=== PATIENT | male | born 1980 | race Caucasian/White ===

== ENCOUNTER 2021-04-05 14:11 | Emergency (ER) | payer SELFPAY ==
[2021-04-05] MEDS ORDERED: Ibuprofen 400 MG Tab PO ONE (14:31)
--- NOTE | 2021-04-05 14:58 | CR ---
PROCEDURE INFORMATION: Exam: XR Right Hand Exam date and time: 04/05/2021 2:25 PM Age: 40 years old Clinical indication: Other: Punched wall; Pain to lateral hand TECHNIQUE: Imaging protocol: XR Right hand. Views: 3 or more views. COMPARISON: No relevant prior studies available. FINDINGS: Bones/joints: There is anatomic alignment. No acute fracture or dislocation. The joint spaces are preserved. There is normal bone density. No aggressive osseous abnormality. Soft tissues: Dorsal soft tissue swelling at the metacarpal level. IMPRESSION: 1. No acute abnormality. 2. Moderate dorsal soft tissue swelling.
--- NOTE | 2021-04-05 15:14 | EDM.PDOC ---
ED HPI GENERAL MEDICAL PROBLEM - General Chief Complaint: Upper Extremity Injury/Pain Stated Complaint: POSSIBLE BROKEN HAND / W/ LAW ENFORCEMENT Time Seen by Provider: 04/05/21 14:30 Source of Information: Reports: Patient, Provider (NEVAEH Herrera for [facility]) History Limitations: Reports: No Limitations - History of Present Illness INITIAL COMMENTS - FREE TEXT/NARRATIVE: Ebenezer is a 40 y/o male who presents to the ED via [facility] with complaints of right hand pain. The patient reports he struck a wall with a closed fist approximately 30 minutes prior to his arrival to this facility. He denies loss of sensory function but does attest to pain with flexion and extension of the third finger PIP. He has taken no medications or performed any supportive cares for his injury. He denies history of injury or trauma to the affected extremity. Treatments RECHARGER: Reports: Splint(s) - Related Data Allergies Allergy/AdvReac Type Severity Reaction Status Date / Time haloperidol [From Haldol] Allergy Cannot Verified 04/05/21 14:23 Remember Home Meds: Home Meds . [No Known Home Meds] 04/05/21 [History] Past Medical History - Past Health History Medical/Surgical History: Denies Medical/Surgical History Social & Family History - Tobacco Use Tobacco Use Status *Q: Current Every Day Tobacco User Years of Tobacco use: 20 Packs/Tins Daily: 0.5 Used Tobacco, but Quit: No Second Hand Smoke Exposure: No - Caffeine Use Caffeine Use: Reports: Energy Drinks, Soda - Recreational Drug Use Recreational Drug Use: No Review of Systems - Review of Systems Review Of Systems: Comprehensive ROS is negative, except as noted in HPI. ED EXAM, GENERAL - Physical Exam Exam: See Below Exam Limited By: No Limitations General Appearance: Alert, No Apparent Distress Eye Exam: Bilateral Eye: EOMI, Normal Inspection, PERRL (3mm) Ears: Normal External Exam, Hearing Grossly Normal Throat/Mouth: Normal Inspection, Normal Oropharynx, Normal Voice, No Airway Compromise Head: Atraumatic, Normocephalic Neck: Normal Inspection, Full Range of Motion Respiratory/Chest: No Respiratory Distress, Lungs Clear, Normal Breath Sounds, No Accessory Muscle Use, Chest Non-Tender Cardiovascular: Normal Peripheral Pulses, Regular Rate, Rhythm, No Gallop, No Murmur, No Rub Peripheral Pulses: 2+: Radial (L), Radial (R) GI/Abdominal: Normal Bowel Sounds, Soft, Non-Tender (Male) Exam: Deferred Rectal (Males) Exam: Deferred Back Exam: Normal Inspection Extremities: Normal Capillary Refill, Joint Swelling (To posterior aspect of right hand, overlying PIP joint), Arm Pain (To third PIP joint on right hand), Limited Range of Motion (To right third PIP joint). No: Increased Warmth, Mottled, Pallor, Redness Neurological: Alert, Oriented, CN II-XII Intact, Normal Cognition, Normal Gait, Normal Reflexes, No Motor/Sensory Deficits Psychiatric: Normal Affect, Normal Mood Skin Exam: Warm, Dry, No Rash, Ecchymosis (To right posterior hand), Wound/Incision (Superficial abrasion to right, third PIP joint). No: Cyanosis, Erythema, Jaundice, Mottled, Pallor Course - Vital Signs Last Recorded V/S: Last Vital Signs Temp 99.0 F 04/05/21 14:24 Pulse 86 04/05/21 14:24 Resp 16 04/05/21 14:24 BP 125/80 04/05/21 14:24 Pulse Ox 100 04/05/21 14:24 - Orders/Labs/Meds Meds: Medications Discontinued Medications Generic Name Dose Route Start Last Admin Trade Name Freq PRN Reason Stop Dose Admin Ibuprofen 400 mg 04/05/21 14:31 04/05/21 15:17 Ibuprofen 400 Mg Tab PO 04/05/21 14:32 400 mg ONETIME ONE Administration - Re-Assessments/Exams Free Text/Narrative Re-Assessment/Exam: 04/05/21 X-ray of right hand obtained. Findings of examination and imaging reviewed with patient. Supportive cares for right hand pain discussed. Patient instructed to follow up with primary care provider regarding todays visit. Red flag signs and symptoms which would warrant immediate reevaluation reviewed. Patient verbalized understanding and agreement with the plan of care. Departure - Departure Time of Disposition: 15:16 Disposition: Home, Self-Care 01 Condition: Good Clinical Impression: Right hand pain - Discharge Information *PRESCRIPTION DRUG MONITORING PROGRAM REVIEWED*: Not Applicable *COPY OF PRESCRIPTION DRUG MONITORING REPORT IN PATIENT KARMA: Not Applicable Instructions: Hand Pain Forms: ED Department Discharge Additional Instructions: 1.) You may take ibuprofen (Advil/Motrin) 400-800mg every six hours, as pain and swelling persist. You may also take acetaminophen (Tylenol) 650-1000mg every six hours, as pain persists. You may stagger these medications so you are taking a dose of either every three hours. 2.) You may apply cold compresses to the area as pain and swelling persist, 20 minutes every hour. 3.) Follow up with your primary care provider in 5-7 days regarding todays visit. Sepsis Event Note (ED) - Evaluation Sepsis Screening Result: No Definite Risk
== END 2021-04-05 15:29 | disposition home or self-care (01) ==
LOC: DL.ED 14:11
DX: M79.641 Pain in right hand (principal); Z88.5 Allergy status to narcotic agent; Z72.0 Tobacco use
CPT/HCPCS: 73130-RT; 99283; A9270-GY

== ENCOUNTER 2021-04-10 18:34 | Emergency (ER) | payer MEDICAID ==
[2021-04-10 19:46] LABS: ANION GAP 12.3 mEq/L (7-13); CHLORIDE,CL 107 mmol/L (98-107); SODIUM,NA 144 mmol/L (136-145)
[2021-04-10 19:49] LABS: AMPHETAMINES,URINE NEGATIVE (NEGATIVE); BARBITURATES,URINE NEGATIVE (NEGATIVE); BENZODIAZEPINE,URINE NEGATIVE (NEGATIVE); MDMA (ECSTASY), URINE NEGATIVE (NEGATIVE); METHADONE,URINE NEGATIVE (NEGATIVE); METHAMPHETAMINES,URINE NEGATIVE (NEGATIVE); OPIATES,URINE NEGATIVE (NEGATIVE); OXYCODONE,URINE NEGATIVE (NEGATIVE); PHENCYCLIDINE,URINE NEGATIVE (NEGATIVE); TCA,URINE NEGATIVE (NEGATIVE)
[2021-04-10] MEDS ORDERED: Ondansetron 4 MG/2 ML SDV IVPUSH ONE (20:00)
--- NOTE | 2021-04-10 20:00 | EDM.PDOC ---
ED HPI GENERAL MEDICAL PROBLEM - General Chief Complaint: Abdominal Pain Stated Complaint: Fell off bunkbed Time Seen by Provider: 04/10/21 19:10 Source of Information: Reports: Patient, RN, RN Notes Reviewed History Limitations: Reports: No Limitations - History of Present Illness INITIAL COMMENTS - FREE TEXT/NARRATIVE: Any is a 40 y/o male who presents to the ED with the [facility] for complaints of RLQ abdominal pain as well as a fall from his lower bunk. The patient reports his abdominal pain started two weeks ago and has waxed and waned in severity over that time. He notes the pain initiates in the RLQ and radiates through into his right lower back. He characterizes the pain as a sharp ripping when at it's worst. Today he notes he developed shaking chills, nausea and two episodes of emesis with the pain. He states the pain became so great he fell off his bottom bunk due to writhing. He denies fever, dyspepsia, hematemesis, dysuria, hematuria, hematochezia, or melena. He notes his last bowel movement was today and was soft/formed. His last meal was this past evening which he ate without complication. The patient attests to striking his head on the floor when he fell off of his bottom bunk; he denies loss of consciousness, daily blood thinner use, or history of blood dyscrasias. He denies cervical point tenderness or neck pain with flexion/extension/lateral rotation. He denies vision changes, dizziness, or projectile vomiting since this incident. He does attest to a frontal headache for which he has taken no medication or performed any supportive cares. Right Lower Abdomen Pain Score (Numeric/FACES): 7 - Related Data Allergies Allergy/AdvReac Type Severity Reaction Status Date / Time haloperidol [From Haldol] Allergy Intermediate Seizure Verified 04/10/21 18:56 Home Meds: Home Meds Acetaminophen 04/10/21 [History] Past Medical History - Past Health History Medical/Surgical History: Denies Medical/Surgical History Psychiatric History: Reports: Anxiety Social & Family History - Tobacco Use Tobacco Use Status *Q: Current Every Day Tobacco User Years of Tobacco use: 25 Packs/Tins Daily: 0.5 - Caffeine Use Caffeine Use: Reports: Coffee, Energy Drinks - Recreational Drug Use Recreational Drug Use: No ED ROS GENERAL - Review of Systems Review Of Systems: Comprehensive ROS is negative, except as noted in HPI. ED EXAM, GI/ABD - Physical Exam Exam: See Below Exam Limited By: No Limitations General Appearance: Alert, No Apparent Distress Eyes: Bilateral: Normal Appearance, EOMI Ears: Normal External Exam, Normal Canal, Hearing Grossly Normal, Normal TMs Nose: Normal Inspection, Normal Mucosa, No Blood Throat/Mouth: Normal Inspection, Normal Oropharynx, Normal Voice, No Airway Compromise. No: Normal Lips (Dry, chapped) Head: Normocephalic, Facial Swelling (Hematoma to midline forehead), Facial Tenderness (To midline forehead), Sinus Tenderness Neck: Normal Inspection, Supple, Non-Tender, Full Range of Motion, Other (Cervical collar in place removed upon assessment due to negative NEXUS criteria). No: Tender Lateral, Tender Midline Respiratory/Chest: No Respiratory Distress, Lungs Clear, Normal Breath Sounds, No Accessory Muscle Use, Chest Non-Tender Cardiovascular: Normal Peripheral Pulses, Regular Rate, Rhythm, No Gallop, No Murmur, No Rub GI/Abdominal Exam: Soft, No Distention, No Abnormal Bruit, No Mass, Pelvis Stable, Guarding, Rebound (To RLQ), Tender (To palpation of RLQ), Abnormal Bowel Sounds (Hyperactive bowel sounds). No: Rigid, Hernia (Male) Exam: Deferred Rectal (Males) Exam: Deferred Back Exam: Normal Inspection, Full Range of Motion. No: CVA Tenderness (L), CVA Tenderness (R) Extremities: Normal Range of Motion, Non-Tender, No Pedal Edema, Normal Capillary Refill, Increased Warmth (To right third PIP; Healing injury due to striking a wall with a closed fist). No: Mottled, Pallor, Redness Neurological: Alert, Oriented, CN II-XII Intact, Normal Cognition, Normal Gait, No Motor/Sensory Deficits Psychiatric: Normal Affect, Normal Mood Skin Exam: Warm, Dry, Intact, No Rash, Ecchymosis (Faint to right third PIP joint). No: Cyanosis, Erythema, Increased Warmth, Jaundice, Mottled, Pallor, Petechiae Course - Vital Signs Last Recorded V/S: Last Vital Signs Temp 98.0 F 04/10/21 22:08 Pulse 62 04/10/21 22:08 Resp 16 04/10/21 22:08 BP 117/67 04/10/21 22:08 Pulse Ox 97 04/10/21 22:08 - Orders/Labs/Meds Labs: Laboratory Tests 04/10/21 04/10/21 04/10/21 Range/Units 19:11 19:11 19:11 WBC 5.8 (5.0-10.0) 10^3/uL RBC 4.36 L (4.6-6.2) 10^6/uL Hgb 13.9 L (14.0-18.0) g/dL Hct 40.1 (40.0-54.0) % MCV 92.0 (80-100) fL MCH 31.9 (27.0-34.0) pg MCHC 34.7 (33.0-35.0) g/dL Plt Count 176 (150-450) 10^3/uL Neut % (Auto) 65.9 (42.2-75.2) % Lymph % (Auto) 24.9 (20.5-50.1) % [place] % (Auto) 7.0 (2-8) % Eos % (Auto) 1.9 (1.0-3.0) % Baso % (Auto) 0.3 (0.0-1.0) % Sodium 144 (136-145) mmol/L Potassium 4.3 (3.5-5.1) mmol/L Chloride 107 (98-107) mmol/L Carbon Dioxide 29 (21-32) mmol/L Anion Gap 12.3 (7-13) mEq/L BUN 21 H (7-18) mg/dL Creatinine 1.26 (0.70-1.30) mg/dL Est Cr Clr Drug Dosing 74.32 mL/min Estimated GFR (MDRD) > 60 BUN/Creatinine Ratio 16.7 (No establ ref range) Glucose 90 (70-99) mg/dL Lactic Acid 1.1 (0.4-2.0) mmol/L Calcium 8.7 (8.5-10.1) mg/dL Magnesium 2.1 (1.8-2.4) mg/dL Total Bilirubin 0.2 (0.2-1.0) mg/dL AST 21 (15-37) U/L ALT 32 (16-63) U/L Alkaline Phosphatase 43 L (46-116) U/L C-Reactive Protein < 0.2 (0.0-0.9) mg/dL Total Protein 6.5 (6.4-8.2) g/dL Albumin 3.7 (3.4-5.0) g/dL Globulin 2.8 Albumin/Globulin Ratio 1.3 Amylase 65 (25-115) U/L Lipase 102 (73-393) U/L Urine Color (YELLOW) Urine Appearance (CLEAR) Urine pH (5.0-9.0) Ur Specific [place] (1.005-1.030) Urine Protein (NEGATIVE) Urine Glucose (UA) (NEGATIVE) Urine Ketones (NEGATIVE) Urine Occult Blood (NEGATIVE) Urine Nitrite (NEGATIVE) Urine Bilirubin (NEGATIVE) Urine Urobilinogen (0.2-1.0) mg/dL Ur Leukocyte Esterase (NEGATIVE) Urine Opiates Screen (NEGATIVE) Ur Oxycodone Screen (NEGATIVE) Urine Methadone Screen (NEGATIVE) Ur Barbiturates Screen (NEGATIVE) U Tricyclic Antidepress (NEGATIVE) Ur Phencyclidine Scrn (NEGATIVE) Ur Amphetamine Screen (NEGATIVE) U Methamphetamines Scrn (NEGATIVE) Urine MDMA Screen (NEGATIVE) U Benzodiazepines Scrn (NEGATIVE) Urine Cocaine Screen (NEGATIVE) U Marijuana (THC) Screen (NEGATIVE) 04/10/21 04/10/21 Range/Units 19:38 19:38 WBC (5.0-10.0) 10^3/uL RBC (4.6-6.2) 10^6/uL Hgb (14.0-18.0) g/dL Hct (40.0-54.0) % MCV (80-100) fL MCH (27.0-34.0) pg MCHC (33.0-35.0) g/dL Plt Count (150-450) 10^3/uL Neut % (Auto) (42.2-75.2) % Lymph % (Auto) (20.5-50.1) % [place] % (Auto) (2-8) % Eos % (Auto) (1.0-3.0) % Baso % (Auto) (0.0-1.0) % Sodium (136-145) mmol/L Potassium (3.5-5.1) mmol/L Chloride (98-107) mmol/L Carbon Dioxide (21-32) mmol/L Anion Gap (7-13) mEq/L BUN (7-18) mg/dL Creatinine (0.70-1.30) mg/dL Est Cr Clr Drug Dosing mL/min Estimated GFR (MDRD) BUN/Creatinine Ratio (No establ ref range) Glucose (70-99) mg/dL Lactic Acid (0.4-2.0) mmol/L Calcium (8.5-10.1) mg/dL Magnesium (1.8-2.4) mg/dL Total Bilirubin (0.2-1.0) mg/dL AST (15-37) U/L ALT (16-63) U/L Alkaline Phosphatase (46-116) U/L C-Reactive Protein (0.0-0.9) mg/dL Total Protein (6.4-8.2) g/dL Albumin (3.4-5.0) g/dL Globulin Albumin/Globulin Ratio Amylase (25-115) U/L Lipase (73-393) U/L Urine Color Yellow (YELLOW) Urine Appearance Clear (CLEAR) Urine pH 7.5 (5.0-9.0) Ur Specific [place] 1.020 (1.005-1.030) Urine Protein Negative (NEGATIVE) Urine Glucose (UA) Negative (NEGATIVE) Urine Ketones Negative (NEGATIVE) Urine Occult Blood Negative (NEGATIVE) Urine Nitrite Negative (NEGATIVE) Urine Bilirubin Negative (NEGATIVE) Urine Urobilinogen 0.2 (0.2-1.0) mg/dL Ur Leukocyte Esterase Negative (NEGATIVE) Urine Opiates Screen Negative (NEGATIVE) Ur Oxycodone Screen Negative (NEGATIVE) Urine Methadone Screen Negative (NEGATIVE) Ur Barbiturates Screen Negative (NEGATIVE) U Tricyclic Antidepress Negative (NEGATIVE) Ur Phencyclidine Scrn Negative (NEGATIVE) Ur Amphetamine Screen Negative (NEGATIVE) U Methamphetamines Scrn Negative (NEGATIVE) Urine MDMA Screen Negative (NEGATIVE) U Benzodiazepines Scrn Negative (NEGATIVE) Urine Cocaine Screen Negative (NEGATIVE) U Marijuana (THC) Screen Negative (NEGATIVE) Meds: Medications Discontinued Medications Generic Name Dose Route Start Last Admin Trade Name Freq PRN Reason Stop Dose Admin Acetaminophen 1,000 mg 04/10/21 20:05 04/10/21 20:13 Acetaminophen 500 Mg Tab PO 04/10/21 20:06 1,000 mg ONETIME ONE Administration Iopamidol 100 ml 04/10/21 21:16 04/10/21 21:18 Iopamidol 612 Mg/Ml 100 Ml Bottle IVPUSH 04/10/21 21:17 75 ml ONETIME ONE Administration Ondansetron HCl 4 mg 04/10/21 20:00 04/10/21 20:06 Ondansetron 4 Mg/2 Ml Sdv IVPUSH 04/10/21 20:01 4 mg ONETIME ONE Administration - Radiology Interpretation Free Text/Narrative:: [facility] Final Radiology Report Call: [phone] assistance Online chat: [email or web address] Name: ANY BROWN Age: 40Years M Date: 04/10/2021 SSN: -- : [id number] Study: CT ABDOMEN PELVIS W CONT Requesting Physician: Trish Woody Images: [id number] Addl Studies: Provided Clinical History: RLQ abdominal pain x2 weeks, now nausea/vomiting Contrast: With Contrast Medium: Isovue 300 Contrast Amount: 75 mL Contrast Method: Intravenous (IV) Page 1 of 2 PROCEDURE INFORMATION: Exam: CT Abdomen And Pelvis With Contrast Exam date and time: 04/10/2021 8:11 PM Age: 40 years old Clinical indication: Abdominal pain; Localized; Right lower quadrant (rlq); Additional info: Rlq abdominal pain x2 weeks, now nausea/vomiting TECHNIQUE: Imaging protocol: Computed tomography of the abdomen and pelvis with contrast. Radiation optimization: All CT scans at this facility use at least one of these dose optimization techniques: automated exposure control; mA and/or kV adjustment per patient size (includes targeted exams where dose is matched to clinical indication); or iterative reconstruction. Contrast material: ISOVUE 300; Contrast volume: 75 ml; Contrast route: INTRAVENOUS (IV); COMPARISON: No relevant prior studies available. FINDINGS: Liver: Normal. No mass. Gallbladder and bile ducts: Normal. No calcified stones. No ductal dilation. Pancreas: Normal. No ductal dilation. Spleen: Probable splenules. Adrenal glands: Normal. No mass. Kidneys and ureters: Normal. No hydronephrosis. Stomach and bowel: Unremarkable. No obstruction. No mucosal thickening. Appendix: The appendix is normal. Intraperitoneal space: Unremarkable. No free air. No significant fluid collection. Vasculature: Unremarkable. No abdominal aortic aneurysm. Lymph nodes: Unremarkable. No enlarged lymph nodes. Urinary bladder: Mild bladder wall thickening is of uncertain significance. Reproductive: Unremarkable as visualized. Bones/joints: Unremarkable. No acute fracture. Soft tissues: Unremarkable. IMPRESSION: 1. No definitive abnormality to explain the patient's symptoms. 2. Mild bladder wall thickening could be within normal limits, but recommend cli nical correlation for UTI/cystitis. Thank you for allowing us to participate in the care of your patient. Dictated and Authenticated by: Santiago Gallardo MD 04/10/2021 9:18 PM Central Time ([place] & [place]) - Re-Assessments/Exams Free Text/Narrative Re-Assessment/Exam: 04/10/21 Given persistent abdominal pain and new onset emesis, will obtain CT abd omen/pelvis. Findings of examination and imaging reviewed with patient. Supportive cares discussed. Patient instructed to follow up with primary care provider regarding todays visit. Red flag signs and symptoms which would warrant immediate reevaluation reviewed. Patient verbalized understanding and agreement with the plan of care. Departure - Departure Time of Disposition: 21:28 Disposition: DC/Tfer to Court of Law En 21 Condition: Good Clinical Impression: Abdominal pain of unknown etiology Nausea and vomiting Qualifiers: Vomiting type: bilious vomiting Qualified Code(s): R11.14 - Bilious vomiting - Discharge Information *PRESCRIPTION DRUG MONITORING PROGRAM REVIEWED*: Not Applicable *COPY OF PRESCRIPTION DRUG MONITORING REPORT IN PATIENT KARMA: Not Applicable Instructions: Abdominal Pain, Adult, Nausea and Vomiting, Adult Referrals: PCP,None [Primary Care Provider] - Forms: ED Department Discharge Additional Instructions: 1.) Eat a clear liquid diet until your nausea is gone. 2.) Eat a bland diet, applesauce, toast, crackers, while experiencing bout of abdominal pain. Avoid spicy, greasy, high-fat foods. 3.) Follow up with your primary care provider regarding today's visit. 4.) You may alternate acetaminophen and ibuprofen, as headache persists. Sepsis Event Note (ED) - Focused Exam Vital Signs: Vital Signs Temp Pulse Resp BP Pulse Ox 04/10/21 22:08 98.0 F 62 16 117/67 97 04/10/21 18:50 98.3 F 86 20 117/89 99
[2021-04-10] MEDS ORDERED: Acetaminophen 500 MG Tab PO ONE (20:05)
[2021-04-10] MEDS ORDERED: Iopamidol 612 MG/ML 100 ML Bottle IVPUSH ONE (21:16)
--- NOTE | 2021-04-10 21:19 | CT ---
PROCEDURE INFORMATION: Exam: CT Abdomen And Pelvis With Contrast Exam date and time: 04/10/2021 8:11 PM Age: 40 years old Clinical indication: Abdominal pain; Localized; Right lower quadrant (rlq); Additional info: Rlq abdominal pain x2 weeks, now nausea/vomiting TECHNIQUE: Imaging protocol: Computed tomography of the abdomen and pelvis with contrast. Radiation optimization: All CT scans at this facility use at least one of these dose optimization techniques: automated exposure control; mA and/or kV adjustment per patient size (includes targeted exams where dose is matched to clinical indication); or iterative reconstruction. Contrast material: ISOVUE 300; Contrast volume: 75 ml; Contrast route: INTRAVENOUS (IV); COMPARISON: No relevant prior studies available. FINDINGS: Liver: Normal. No mass. Gallbladder and bile ducts: Normal. No calcified stones. No ductal dilation. Pancreas: Normal. No ductal dilation. Spleen: Probable splenules. Adrenal glands: Normal. No mass. Kidneys and ureters: Normal. No hydronephrosis. Stomach and bowel: Unremarkable. No obstruction. No mucosal thickening. Appendix: The appendix is normal. Intraperitoneal space: Unremarkable. No free air. No significant fluid collection. Vasculature: Unremarkable. No abdominal aortic aneurysm. Lymph nodes: Unremarkable. No enlarged lymph nodes. Urinary bladder: Mild bladder wall thickening is of uncertain significance. Reproductive: Unremarkable as visualized. Bones/joints: Unremarkable. No acute fracture. Soft tissues: Unremarkable. IMPRESSION: 1. No definitive abnormality to explain the patient's symptoms. 2. Mild bladder wall thickening could be within normal limits, but recommend clinical correlation for UTI/cystitis.
== END 2021-04-10 22:00 ==
LOC: DL.ED 18:34
DX: R10.9 Unspecified abdominal pain (principal); R11.14 Bilious vomiting; S00.83XA Contusion of other part of head, initial encounter; Z88.5 Allergy status to narcotic agent; Z72.0 Tobacco use; W18.39XA Other fall on same level, initial encounter
CPT/HCPCS: 36415; 74177; 80053; 80305; 81003; 82150; 83605; 83690; 83735; 85025; 86140; 96374; 99284; A9270; J2405; Q9967